=== PATIENT | female | born 1960 | race Two or more races ===

== ENCOUNTER 2025-08-04 09:21 | Inpatient (IN) | payer OTHER ==
[~2025-08-04] VITALS: Ht 154.9 cm; Wt 70.3 kg
[2025-08-04 10:31] LABS: BASOPHILS % 0.7 % (0.0-2.0); EOSINOPHILS % 1.4 % (0.0-5.0); HEMATOCRIT. 38.6 % (36.0-48.0); HEMOGLOBIN. 12.7 g/dL (12.0-16.0); LYMPHOCYTES % 15.7 % (20.0-50.0); MEAN PLATELET VOLUME 9.4 fl (7.4-10.4); MONOCYTES % 4.6 % (2.0-8.0); NEUTROPHILS % 77.6 % (40.0-76.0); PLATELET 114 x1000/uL (130-400); RED BLOOD CELL COUNT 4.25 mill/uL (4.2-5.4); RED CELL DISTRIBUTION WIDTH 12.5 % (11.6-14.6)
[2025-08-04 10:52] LABS: TROPONIN I HIGH SENSITIVITY < 4 ng/L (3.0-34)
[2025-08-04] MEDS: TETANUS, DIPHTHERIA, PERTUSSIS VAC/PF 0.5ML (>10YR OLD) IM ONE (10:54)
[2025-08-04 11:14] LABS: CREATININE 0.6 mg/dL (0.6-1.0)
[2025-08-04 11:15] LABS: PROTEIN TOTAL 6.5 g/dL (6.0-8.3); UREA NITROGEN BLOOD 8 mg/dL (9-23)
[2025-08-04 11:16] LABS: ASPARTATE AMINOTRANSFERASE 30 IU/L (<34)
[2025-08-04 11:17] LABS: BILIRUBIN DIRECT 0.3 mg/dL (<=3.0); BILIRUBIN TOTAL 0.8 mg/dL (0.1-1.0)
[2025-08-04] MEDS: LIDOCAINE HCL/EPINEPHRINE 1%-EPI 1:100,000 20ML VIAL INFIL ONE (11:27)
[2025-08-04] MEDS ORDERED: MAGNESIUM/ALUMINUM HYDROXIDE/SIMETHICONE 30ML UDC PO PRN (11:45)
[2025-08-04] MEDS ORDERED: ONDANSETRON HCL 4MG/2ML INJ IV PRN (11:45)
[2025-08-04] MEDS ORDERED: DIPHENHYDRAMINE 50MG/ML VIAL IV PRN (11:45)
[2025-08-04] MEDS ORDERED: ENOXAPARIN 40MG/0.4ML SYR SUBCUT SCH (11:45)
[2025-08-04] MEDS ORDERED: GUAIFENESIN 200MG/10ML SUGAR FREE UDC PO PRN (11:45)
[2025-08-04] MEDS ORDERED: IPRATROPIUM/ALBUTEROL 0.5-3(2.5)MG/3ML NEB HHN PRN (11:45)
[2025-08-04] MEDS ORDERED: ACETAMINOPHEN 325MG TABLET PO PRN (11:45)
[2025-08-04 13:43] LABS: TROPONIN I HIGH SENSITIVITY < 4 ng/L (3.0-34)
[2025-08-04] MEDS: ENOXAPARIN 30MG/0.3ML SYR SUBCUT SCH (14:10)
[2025-08-04] MEDS: SODIUM CHLORIDE 0.9% 3ML FLUSH IVF SCH (14:11)
[2025-08-04 14:32] LABS: TROPONIN I HIGH SENSITIVITY < 4 ng/L (3.0-34)
[2025-08-04 15:00] VITALS: BP 161/86; PULSE 70; RESP 15; TEMP 37.3; O2SAT 97
[2025-08-04 16:00] VITALS: BP 146/65; PULSE 67; RESP 16; O2SAT 95
[2025-08-04 16:16] VITALS: BP 161/86; PULSE 70; RESP 15; TEMP 37.3632
[2025-08-04] MEDS ORDERED: INFLUENZA VACCINE 05/PF 0.5 ML SYRINGE IM ONE (16:30)
[2025-08-04 17:01] VITALS: BP 130/64; PULSE 70; RESP 12; O2SAT 97
[2025-08-04] MEDS: ACETAMINOPHEN 325MG TABLET PO PRN (17:20)
[2025-08-04 20:00] VITALS: BP 127/49; PULSE 67; RESP 16; TEMP 36.6; O2SAT 95
[2025-08-04] MEDS ORDERED: ZOLPIDEM TARTRATE 5MG TABLET PO PRN (21:00)
[2025-08-05] VITALS: BP 116/51; PULSE 59; RESP 16; TEMP 36.7; O2SAT 97
[2025-08-05 01:11] LABS: TROPONIN I HIGH SENSITIVITY < 4 ng/L (3.0-34)
[2025-08-05] MEDS ORDERED: PROMETHAZINE/DEXTROMETHORPHAN 6.25-15MG/5ML PO PRN (02:30)
[2025-08-05 04:00] VITALS: BP 126/54; PULSE 68; RESP 17; TEMP 36.3; O2SAT 98
[2025-08-05 08:00] VITALS: BP 134/55; PULSE 72; RESP 18; TEMP 37.1; O2SAT 99
[2025-08-05] MEDS: GUAIFENESIN 600MG ER TABLET PO SCH (08:48)
[2025-08-05] MEDS: BACITRACIN/POLYMYXIN B SULFATE OPHTH OINT 3.5GM RIGHTEYE SCH (08:48)
[2025-08-05 12:00] VITALS: BP 122/50; PULSE 63; RESP 15; TEMP 36.7; O2SAT 97
[2025-08-05 16:00] VITALS: BP 133/59; PULSE 73; RESP 16; RESP 20; TEMP 36.7; O2SAT 95
[2025-08-05 20:00] VITALS: BP 163/72; PULSE 71; RESP 16; TEMP 36.9; O2SAT 99
[2025-08-05] MEDS: CLONIDINE 0.1MG TABLET PO PRN (21:23)
[2025-08-06] VITALS (8 sets, daily range): BP systolic 100–152; BP diastolic 40–71; PULSE 60–90; RESP 16–18; TEMP 36.6–36.8; O2SAT 94–100
[2025-08-06] MEDS: IPRATROPIUM/ALBUTEROL 0.5-3(2.5)MG/3ML NEB HHN SCH (01:45)
[2025-08-06] MEDS: PNEUMOCOCCAL 20-VAL CONJ-DIP CRM 0.5ML IM ONE (18:38)
== END 2025-08-06 18:56 | disposition home or self-care (01) | DRG 605 ==
LOC: ER 09:21 → MICUSO 13:49 → EDBEDREQ 13:50 → EDBEDREQTM 13:50 → 5WST 17:43
PROVIDERS: ADMIT Internal Medicine; ATTEND Internal Medicine
PROC: 0HQ1XZZ Repair Face Skin, External Approach (ICD-10-PCS; principal; 2025-08-04)
DX: S01.81XA Laceration without foreign body of other part of head, initial encounter (principal); I10 Essential (primary) hypertension; J45.909 Unspecified asthma, uncomplicated; Z87.891 Personal history of nicotine dependence; W18.30XA Fall on same level, unspecified, initial encounter; Y93.89 Activity, other specified; Y92.89 Other specified places as the place of occurrence of the external cause; Y99.8 Other external cause status
CPT/HCPCS: 36415; 71045; 80048; 80076; 83880; 84484; 85025; 85379; 90471; 90686; 90715; 90732; 93005; 93970; 94640; 94760; 97162; 99285; J1650; J2004